=== PATIENT | female | born 1955 | race Caucasian/White ===

== ENCOUNTER 2018-04-24 18:43 | Emergency (ER) | payer OTHER ==
[~2018-04-24] VITALS: Ht 160 cm; Wt 89.4 kg
[2018-04-24 19:01] VITALS: Ht 160 cm; Wt 89.4 kg
[2018-04-24 22:45] VITALS: BP 135/81
== END 2018-04-24 22:45 | disposition home or self-care (01) ==
LOC: ED 18:43
DX: S61.212A Laceration without foreign body of right middle finger without damage to nail, initial encounter (principal); I10 Essential (primary) hypertension; E11.9 Type 2 diabetes mellitus without complications; I48.91 Unspecified atrial fibrillation; Z88.1 Allergy status to other antibiotic agents; Z88.5 Allergy status to narcotic agent; Z88.8 Allergy status to other drugs, medicaments and biological substances; W01.0XXA Fall on same level from slipping, tripping and stumbling without subsequent striking against object, initial encounter; Y93.89 Activity, other specified; Y92.89 Other specified places as the place of occurrence of the external cause; Y99.8 Other external cause status
CPT/HCPCS: A4570; J0690; J1170; J2001; Q0092; Q0162